=== PATIENT | female | born 1990 | race African-American/Black ===

== ENCOUNTER 2017-08-27 12:39 | Emergency (ER) | payer OTHER ==
[~2017-08-27] VITALS: Ht 167.6 cm; Wt 54.7 kg
[~2017-08-27 12:39] MED LIST: IBUP600 PO; PERI8.6T PO; PREN1CAP20 PO
[2017-08-27 12:44] VITALS: BP 140/86; PULSE 84; RESP 22; TEMP 97.8; O2SAT 100
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
== END 2017-08-27 14:40 | disposition home or self-care (01) ==
LOC: PHED 12:39
DX: S00.12XA Contusion of left eyelid and periocular area, initial encounter (principal); S40.011A Contusion of right shoulder, initial encounter; Y04.8XXA Assault by other bodily force, initial encounter; Y92.009 Unspecified place in unspecified non-institutional (private) residence as the place of occurrence of the external cause
CPT/HCPCS: 70450; 71045; 72125; 73560; 99284

== ENCOUNTER 2017-09-03 12:53 | Inpatient (IN) | payer MEDICAID, OTHER ==
[~2017-09-03] VITALS: Ht 165.1 cm; Wt 55.5 kg
[2017-09-03 13:29] VITALS: BP 143/80; PULSE 118; RESP 23; TEMP 98.4; O2SAT 100
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
[2017-09-03 15:43] LABS: AUTOMATED NEUTROPHIL # 9.1 TH/MM3 (1.8-7.7); BASOPHIL % 0.3 % (0.0-2.0); EOSINOPHIL % 0.1 % (0.0-4.0); HEMATOCRIT 40.5 % (35.0-46.0); HEMOGLOBIN 13.7 GM/DL (11.6-15.3); LYMPH % 11.9 % (9.0-44.0); LYMPHOCYTE # 1.3 TH/MM3 (1.0-4.8); MEAN CELL VOLUME 91.7 FL (80.0-100.0); MEAN CORPUSCULAR HEMOGLOBIN 31.1 PG (27.0-34.0); MEAN CORPUSCULAR HGB CONC 33.9 % (32.0-36.0); MEAN PLATELET VOLUME 9.1 FL (7.0-11.0); MONO % 5.6 % (0.0-8.0); MONOCYTE # 0.6 TH/MM3 (0-0.9); NEUT % 82.1 % (16.0-70.0); PLATELET COUNT 264 TH/MM3 (150-450); RED BLOOD COUNT 4.42 MIL/MM3 (4.00-5.30); RED CELL DISTRIBUTION WIDTH 12.7 % (11.6-17.2); WHITE BLOOD COUNT 11.1 TH/MM3 (4.0-11.0)
[2017-09-03 16:04] LABS: ALBUMIN 4.4 GM/DL (3.4-5.0); ALKALINE PHOSPHATASE 74 U/L (45-117); ALT (GPT) 17 U/L (10-53); AST (GOT) 12 U/L (15-37); BLOOD UREA NITROGEN 8 MG/DL (7-18); CHLORIDE 108 MEQ/L (98-107); CREATININE 0.77 MG/DL (0.50-1.00); GLOMERULAR FILTRATION RATE 111 ML/MIN (>89); GLUCOSE,RANDOM 103 MG/DL (74-106); SODIUM (NA) 143 MEQ/L (136-145); TOTAL BILIRUBIN ADULT 0.5 MG/DL (0.2-1.0)
[2017-09-03] MEDS ORDERED: LORazepam 1 MG TAB PO PRN ×2 (16:30→16:45)
[2017-09-03] MEDS ORDERED: MAGNESIUM HYDROXIDE SUSP 30 ML CUP PO PRN (16:30)
[2017-09-03] MEDS ORDERED: POTASSIUM CHLORIDE 10 MEQ CONTROLLED RELEASE TAB PO ONE (16:30)
[2017-09-03] MEDS ORDERED: LORazepam 2 MG/ML VIAL IM PRN (16:30)
[2017-09-03] MEDS ORDERED: ALUMINUM/MAGNESIUM/SIMETH 30 ML CUP PO PRN (16:30)
[2017-09-03] MEDS ORDERED: BENZTROPINE MESYLATE 1 MG TAB PO PRN (16:30)
[2017-09-03] MEDS ORDERED: BENZTROPINE MESYLATE 2 MG/2 ML VIAL IM PRN (16:30)
[2017-09-03] MEDS ORDERED: NICOTINE 21 MG/24 HR PATCH T-DERMAL PRN (16:30)
[2017-09-03] MEDS ORDERED: MELATONIN 5 MG TAB PO PRN (16:30)
[2017-09-03] MEDS ORDERED: FLUMAZENIL 0.5 MG/5 ML VIAL IV PUSH PRN (16:45)
[2017-09-03] MEDS ORDERED: LORazepam 2 MG/ML VIAL IV PUSH PRN ×4 (16:45)
[2017-09-03] MEDS ORDERED: POTASSIUM CHLORIDE 20 MEQ CONTROLLED RELEASE TAB PO ONE ×2 (16:45→18:00)
[2017-09-03] MEDS ORDERED: LORazepam 2 MG TAB PO PRN (16:45)
[2017-09-03] MEDS ORDERED: IBUPROFEN 600 MG TAB PO PRN (16:45)
[2017-09-03] MEDS ORDERED: ALBUTEROL SULFATE 90 MCG/ACT HFA 8 GM INHALER INH PRN (16:45)
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
[2017-09-03 19:04] LABS: FREE T4 1.24 NG/DL (0.76-1.46)
[2017-09-03] MEDS: QUEtiapine FUMARATE 25 MG TAB PO SCH (21:00)
[2017-09-03] MEDS: BACITRACIN TOP OINT 15 GM TUBE TOPICAL SCH (21:00)
[2017-09-04 06:21] VITALS: BP 118/96; PULSE 96; RESP 16; TEMP 97.7; O2SAT 100
[2017-09-04] MEDS: BACITRACIN TOP OINT 15 GM TUBE TOPICAL SCH ×2 (09:00→20:52)
[2017-09-04] MEDS: FOLIC ACID 1 MG TAB PO SCH (12:09)
[2017-09-04] MEDS: QUEtiapine FUMARATE 25 MG TAB PO SCH ×2 (12:10→20:48)
[2017-09-04] MEDS: MULTIVITAMINS/MINERALS THERAPEUTIC TAB PO SCH (12:10)
[2017-09-04] MEDS: THIAMINE HCL 100 MG TAB PO SCH (12:10)
[2017-09-04 14:24] VITALS: BP 130/62; PULSE 80; RESP 16; TEMP 98.4; O2SAT 97
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
[2017-09-04 16:00] VITALS: BP 139/86; PULSE 74; RESP 16; TEMP 97.7; O2SAT 100
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
[2017-09-04] MEDS: DEXT 5%-NACL 0.9% 1000 ML INJ 1,000 ML IV SCH (17:11)
[2017-09-04] MEDS: THIAMINE INJ 100 MG in SODIUM CHLORIDE 0.9% INJ 100 ML IV SCH (17:58)
--- NOTE | 2017-09-04 18:28 | EKG ---
Date Performed: 09/03/2017 Time Performed: 21:37:40 PTAGE: 26 years EKG: Sinus rhythm NORMAL ECG Since PREVIOUS TRACING , no significant change noted PREVIOUS TRACIN04/06/2012 09.02 DOCTOR: Talat Ames Interpretating Date/Time 09/04/2017 18:27:23
[2017-09-04] MEDS ORDERED: diphenhydrAMINE HCL 50 MG/ML VIAL IM SCH (18:45)
[2017-09-04] MEDS: MULTIVITAMIN INJ 10 ML, FOLIC ACID INJ 1 MG in SODIUM CHLORID 0.9% 500 ML INJ 500 ML IV SCH (18:48)
[2017-09-04] MEDS: HALOPERIDOL LACTATE 5 MG/ML AMP IM PRN (20:48)
[2017-09-04 21:00] VITALS: BP 84/55; PULSE 73; RESP 16; TEMP 98.7; O2SAT 97
[2017-09-05 00:54] VITALS: BP 132/76; PULSE 82; RESP 16; TEMP 96.4; O2SAT 100
[2017-09-05] MEDS: DEXT 5%-NACL 0.9% 1000 ML INJ 1,000 ML IV SCH ×3 (03:00→23:00)
[2017-09-05 06:31] VITALS: BP 131/65; PULSE 70; RESP 16; O2SAT 100
[2017-09-05] MEDS: THIAMINE HCL 100 MG TAB PO SCH (08:19)
[2017-09-05] MEDS: FOLIC ACID 1 MG TAB PO SCH (08:19)
[2017-09-05] MEDS: QUEtiapine FUMARATE 25 MG TAB PO SCH ×2 (08:19→21:13)
[2017-09-05] MEDS: BACITRACIN TOP OINT 15 GM TUBE TOPICAL SCH ×2 (08:47→21:00)
[2017-09-05] MEDS: MULTIVITAMINS/MINERALS THERAPEUTIC TAB PO SCH (09:00)
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
[2017-09-05 10:36] LABS: AUTOMATED NEUTROPHIL # 3.8 TH/MM3 (1.8-7.7); BASOPHIL % 0.4 % (0.0-2.0); EOSINOPHIL # 0.1 TH/MM3 (0-0.4); EOSINOPHIL % 2.6 % (0.0-4.0); HEMATOCRIT 37.7 % (35.0-46.0); HEMOGLOBIN 12.7 GM/DL (11.6-15.3); LYMPHOCYTE # 1.3 TH/MM3 (1.0-4.8); MEAN CORPUSCULAR HEMOGLOBIN 31.4 PG (27.0-34.0); MEAN CORPUSCULAR HGB CONC 33.7 % (32.0-36.0); MEAN PLATELET VOLUME 9.2 FL (7.0-11.0); MONOCYTE # 0.5 TH/MM3 (0-0.9); PLATELET COUNT 196 TH/MM3 (150-450); RED BLOOD COUNT 4.06 MIL/MM3 (4.00-5.30); RED CELL DISTRIBUTION WIDTH 12.7 % (11.6-17.2); WHITE BLOOD COUNT 5.7 TH/MM3 (4.0-11.0)
[2017-09-05 11:15] LABS: BICARBONATE 23.8 MEQ/L (21.0-32.0); BLOOD UREA NITROGEN 8 MG/DL (7-18); CHLORIDE 109 MEQ/L (98-107); CHOLESTEROL 97 MG/DL (120-200); CHOLESTEROL/ HDL RATIO 1.75 RATIO; CREATININE 0.59 MG/DL (0.50-1.00); GLOMERULAR FILTRATION RATE 150 ML/MIN (>89); GLUCOSE,RANDOM 80 MG/DL (74-106); HDL CHOLESTEROL 55.4 MG/DL (40.0-60.0); LDL CHOLESTEROL 34 MG/DL (0-99); MAGNESIUM 1.9 MG/DL (1.5-2.5); SODIUM (NA) 143 MEQ/L (136-145); TRIGLYCERIDES 38 MG/DL (42-150)
--- NOTE | 2017-09-05 12:26 | RADRPT ---
EXAM DATE/TIME: 09/05/2017 11:10 [facility] COMPARISON: CT BRAIN W/O CONTRAST, August 27, 2017, 13:34. INDICATIONS : Altered mental status. RADIATION DOSE: 49.42 CTDIvol (mGy) MEDICAL HISTORY : None SURGICAL HISTORY : None. ENCOUNTER: Initial ACUITY: 1 day PAIN SCALE: 0/10 LOCATION: cranial TECHNIQUE: Multiple contiguous axial images were obtained of the head. Using automated exposure control and adj ustment of the mA and/or kV according to patient size, radiation dose was kept as low as reasonably a chievable to obtain optimal diagnostic quality images. DICOM format image data is available electro nically for review and comparison. FINDINGS: CEREBRUM: The ventricles are normal for age. No evidence of midline shift, mass lesion, hemorrhage or acute in farction. No extra-axial fluid collections are seen. POSTERIOR FOSSA: The cerebellum and brainstem are intact. The 4th ventricle is midline. The cerebellopontine angle i s unremarkable. EXTRACRANIAL: The visualized portion of the orbits is intact. SKULL: The calvaria is intact. No evidence of skull fracture. CONCLUSION: Normal examination. Faith Lima MD on September 05, 2017 at 12:23 Board Certified Radiologist. This report was verified electronically.
[2017-09-05 12:52] LABS: HEMOGLOBIN A1C 4.6 % (4.3-6.0)
--- NOTE | 2017-09-05 13:27 | EKG ---
Date Performed: 09/04/2017 Time Performed: 17:07:07 PTAGE: 26 years EKG: Sinus rhythm WITH SINUS ARRHYTHMIA NORMAL ECG Since PREVIOUS TRACING , no significant change noted PREVIOUS TRACIN09/03/2017 21.37 DOCTOR: Talat Ames Interpretating Date/Time 09/05/2017 13:26:21
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
[2017-09-05] MEDS ORDERED: GADODIAMIDE PF 287 MG/ML 10 ML VIAL (for RAD MRI) IVCONTRAST ONE (15:58)
--- NOTE | 2017-09-05 16:27 | RADRPT ---
EXAM DATE/TIME: 09/05/2017 15:36 [facility] COMPARISON: No previous studies available for comparison. INDICATIONS : Altered mental status. Psychosis. CONTRAST: 10 cc Omniscan (gadodiamide) IV MEDICAL HISTORY : None. SURGICAL HISTORY : section. ENCOUNTER: Initial ACUITY: 2 day PAIN SCORE: 0/10 LOCATION: cranial TECHNIQUE: Multiplanar, multisequence MRI of the brain was performed both prior to and following the administrat ion of paramagnetic contrast. FINDINGS: CEREBRUM: The ventricles are normal for age. No evidence of midline shift, mass lesion, hemorrhage or acute in farction. No extraaxial fluid collections are seen. The pituitary gland and suprasellar cistern are normal in configuration. WHITE MATTER: No significant signal abnormalities are seen in the white matter. POSTERIOR FOSSA: The cerebellum and brainstem are intact. The 4th ventricle is midline. The cerebellopontine angle is unremarkable. The cerebellar tonsils are normal in position. DIFFUSION IMAGING: No focal areas of restricted diffusion are seen. No evidence of acute infarction. EXTRACRANIAL: The visualized portions of the orbits and paranasal sinuses are unremarkable. POST-CONTRAST: No abnormal areas of parenchymal or dural enhancement. No evidence of blood-brain barrier breakdown. CONCLUSION: Normal examination for a patient of this age. Mynor Valladares MD on September 05, 2017 at 16:19 Board Certified Radiologist. This report was verified electronically.
--- NOTE | 2017-09-05 16:30 | RADRPT ---
EXAM DATE/TIME: 09/05/2017 15:36 [facility] COMPARISON: No previous studies available for comparison. INDICATIONS : Altered mental status. Psychosis. MEDICAL HISTORY : None. SURGICAL HISTORY : section. ENCOUNTER: Initial ACUITY: 2 day PAIN SCORE: 0/10 LOCATION: cranial Please note a normal MRA of the brain does not entirely exclude the possibility of a small aneurysm, nor the possibility of distal intracranial vessel disease. TECHNIQUE: 3D time of flight MRA was performed. Source images, multiplanar STS MIP, and 3D volume MIP reconstru ctions were reviewed. FINDINGS: There is excellent visualization of the major intracranial arteries out to the second-order branch ve ssels. There is no evidence for aneurysm, vessel truncation or stenosis, and no evidence for vascula r malformation. CONCLUSION: 1. Negative examination. Pedro Kinsey MD on September 05, 2017 at 16:27 Board Certified Radiologist. This report was verified electronically.
[2017-09-05] MEDS: THIAMINE INJ 100 MG in SODIUM CHLORIDE 0.9% INJ 100 ML IV SCH (16:32)
[2017-09-05] MEDS: MULTIVITAMIN INJ 10 ML, FOLIC ACID INJ 1 MG in SODIUM CHLORID 0.9% 500 ML INJ 500 ML IV SCH (17:00)
[2017-09-05 18:00] VITALS: BP 142/73; PULSE 78; RESP 18; TEMP 98.2; O2SAT 98
[2017-09-05] MEDS ORDERED: FOSPHENYTOIN INJ 1,000 MGPE in SODIUM CHLORIDE 0.9% INJ 50 ML IV ONE (21:00)
[2017-09-05 21:52] VITALS: PULSE 104; O2SAT 99
[2017-09-05 21:56] VITALS: BP 120/70; PULSE 88
[2017-09-06] MEDS: HALOPERIDOL LACTATE 5 MG/ML AMP IM PRN (02:00)
[2017-09-06 02:27] VITALS: BP 104/72; PULSE 68; RESP 18; TEMP 97.8; O2SAT 99
[2017-09-06] MEDS: DEXT 5%-NACL 0.9% 1000 ML INJ 1,000 ML IV SCH (02:30)
[2017-09-06 06:22] VITALS: BP 111/77; PULSE 68; RESP 18; TEMP 98; O2SAT 99
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
--- NOTE | 2017-09-06 08:48 | HHI.PYPN ---
Subjective Chief Complaint: psychosis Remarks Patient seen and examined with nurse. Chart reviewed. Case discussed with nursing staff. Patient had 2 spells over weekend possibly concerning for seizure. Hospitalist and neurology were consulted. Patient remains on 1:1 for safety due to behaviors at the beginning of the weekend, which have not continued. Nurse reports patient chewed her medications this morning and spit much of them out. On my examination today, patient is in bed with sitter at the bedside. Affect is blunted and patient keeps her eyes closed for much of the interview. She appears quite withdrawn and regressed compared to her presentation before the weekend. She reports experiencing ongoing CAH to hurt self and others (no specific victim), although she denies any actual SI or HI. She is taking poor PO, and when I ask about this she reports that her throat hurts. No reported side effects from medications. Except for above, no acute physical complaints. Spoke with patient's mother, Ms. Deutsch over the phone. We discuss patient's progress and review the lab and study workup so far. I have suggested titrating Seroquel to target psychotic symptoms, but mother does not wish to do so at this time. We discuss disposition planning, and mother would like patient to remain on the inpatient unit at least overnight until EEG can be read , but I get the sense that thereafter she would like the patient to pursue counseling on an outpatient basis. I have counseled mother that patient would likely struggle in a less restrictive setting as a consequence of her psychosis , particularly if we do not adjust medications to address this. She thanks me for my involvement in patient's case. I spent ~15min in telephone consultation with mother. Review of Systems ROS Limitations: Psychotic, Poor Historian Except as stated in HPI: all other systems reviewed are Neg Mental Status Examination Appearance: Disheveled Consciousness: Alert Orientation: x4 Motor Activity: Other (No hand tremor. No cogwheeling. No dystonia. No dyskinesia. No hypertonia UE or LE. No pathologic clonus. No other motor abnormalities noted. No ictal activity noted.) Speech: Slow Language: Adequate Fund of Knowledge: Inadequate Attention and Concentration: Inadequate Memory: Impaired Mood: Other (dysphoric) Affect: Blunt Thought Process & Associations: Intact Thought Content: Bizarre thinking, Delusional Hallucination Type: Auditory (CAH to hurt self/others) Delusion Type: Paranoid Suicidal Ideation: No Suicidal Plan: No Suicidal Intention: No Homicidal Ideation: No Homicidal Plan: No Homicidal Intention: No Insight: Poor Judgment: Poor Results Labs Test 09/05/17 09:17 09/05/17 13:46 09/05/17 14:15 White Blood Count 5.7 TH/MM3 Red Blood Count 4.06 MIL/MM3 Hemoglobin 12.7 GM/DL Hematocrit 37.7 % Mean Corpuscular Volume 93.0 FL Mean Corpuscular Hemoglobin 31.4 PG Mean Corpuscular Hemoglobin Concent 33.7 % Red Cell Distribution Width 12.7 % Platelet Count 196 TH/MM3 Mean Platelet Volume 9.2 FL Neutrophils (%) (Auto) 66.0 % Lymphocytes (%) (Auto) 23.0 % Monocytes (%) (Auto) 8.0 % Eosinophils (%) (Auto) 2.6 % Basophils (%) (Auto) 0.4 % Neutrophils # (Auto) 3.8 TH/MM3 Lymphocytes # (Auto) 1.3 TH/MM3 Monocytes # (Auto) 0.5 TH/MM3 Eosinophils # (Auto) 0.1 TH/MM3 Basophils # (Auto) 0.0 TH/MM3 CBC Comment DIFF FINAL Differential Comment Blood Urea Nitrogen 8 MG/DL Creatinine 0.59 MG/DL Random Glucose 80 MG/DL Calcium Level 8.0 MG/DL Magnesium Level 1.9 MG/DL Sodium Level 143 MEQ/L Potassium Level 3.2 MEQ/L Chloride Level 109 MEQ/L Carbon Dioxide Level 23.8 MEQ/L Anion Gap 10 MEQ/L Estimat Glomerular Filtration Rate 150 ML/MIN Hemoglobin A1c 4.6 % Triglycerides Level 38 MG/DL Cholesterol Level 97 MG/DL LDL Cholesterol 34 MG/DL HDL Cholesterol 55.4 MG/DL Cholesterol/HDL Ratio 1.75 RATIO HIV (1&2) Ab and P24 Ag, 4th Gener NONREACTIVE Ammonia 32 MCMOL/L C-Reactive Protein LESS THAN 0.29 MG/DL Erythrocyte Sedimentation Rate 3 mm/hr Labs reviewed. Last Impressions Brain MRI 09/05/17 1322 Signed Impressions: Service Date/Time: Tuesday, September 05, 2017 15:36 - CONCLUSION: Normal examination for a patient of this age. Mynor Valladares MD Head Magnetic Resonance Angiography 09/05/17 0000 Signed Impressions: Service Date/Time: Tuesday, September 05, 2017 15:36 - CONCLUSION: 1. Negative examination. Pdero Kinsey MD Head CT 09/05/17 0000 Signed Impressions: Service Date/Time: Tuesday, September 05, 2017 11:10 - CONCLUSION: Normal examination. Faith Lima MD Vitals/IOs Vital Signs Date Time Temp Pulse Resp B/P (MAP) Pulse Ox O2 Delivery O2 Flow Rate FiO2 09/06/17 06:22 98.0 68 18 111/77 (88) 99 Intake and Output 09/06/17 09/06/17 09/07/17 08:00 16:00 00:00 Intake Total 2017 ml Balance 2017 ml Assessment & Plan Problem List: (1) Unspecified psychosis ICD Codes: F29 - Unspecified psychosis not due to a substance or known physiological condition Status: Acute (2) Polysubstance abuse ICD Codes: F19.10 - Other psychoactive substance abuse, uncomplicated Status: Acute Assessment & Plan Differential diagnosis remains largely unchanged. Post- or inter-ictal psychosis is certainly a possibility if EEG suggests seizure tendency. I recommended titrating Seroquel today to target psychotic symptoms but HCS declines med change at this time. Continue 1:1 sitter for safety. Encourage fluids and consult dietitian given poor PO intake. Hospitalist and neurology input noted and appreciated. Follow-up outstanding laboratories and EEG. Continue to monitor on medical psychiatric unit. Continue other meds and care as ordered. Justification for Cont. Inpt. Impairment in reality construction. Impairment in self-care. High risk for decompensation in less restrictive environment. Discharge Planning Pending psychiatric stabilization Request HC Surrog/Guard Advoc?: Yes Misael Sutton MD Sep 06, 2017 08:48
[2017-09-06] MEDS: D5-NS + KCL 20 MEQ INJ 1,000 ML IV SCH ×2 (09:00→19:00)
[2017-09-06] MEDS: BACITRACIN TOP OINT 15 GM TUBE TOPICAL SCH ×2 (09:00→20:48)
[2017-09-06] MEDS: QUEtiapine FUMARATE 25 MG TAB PO SCH ×2 (10:03→20:48)
[2017-09-06] MEDS: FOLIC ACID 1 MG TAB PO SCH (10:03)
[2017-09-06] MEDS: MULTIVITAMINS/MINERALS THERAPEUTIC TAB PO SCH (10:03)
[2017-09-06] MEDS: THIAMINE HCL 100 MG TAB PO SCH (10:03)
[2017-09-06] MEDS: FOSPHENYTOIN SODIUM 100 MG PE/2 ML VIAL IV SCH ×2 (10:55→21:47)
[2017-09-06 13:19] LABS: BICARBONATE 25.1 MEQ/L (21.0-32.0); CALCIUM 8.2 MG/DL (8.5-10.1); CREATININE 0.48 MG/DL (0.50-1.00)
--- NOTE | 2017-09-06 14:15 | HHI.PR ---
Subjective Remarks Follow up possible seizure. Her mother is present and reports that the patient' s left eye has been red. The patient denies pain in the left eye. She is reporting blurred vision that is getting worse. Objective Vitals Vital Signs Date Time Temp Pulse Resp B/P (MAP) Pulse Ox O2 Delivery O2 Flow Rate FiO2 09/06/17 06:22 98.0 68 18 111/77 (88) 99 09/06/17 02:27 97.8 68 18 104/72 (83) 99 09/05/17 21:56 88 120/70 (87) 09/05/17 21:52 104 99 09/05/17 18:00 98.2 78 18 142/73 (96) 98 I/O 09/05/17 09/05/17 09/05/17 09/06/17 09/06/17 09/06/17 07:00 15:00 23:00 07:00 15:00 23:00 Intake Total 1128.2 ml 360 ml 2018 ml Balance 1128.2 ml 360 ml 2018 ml Intake Oral 0 ml 360 ml IV Total 1128.2 ml 2018 ml # Voids 1 1 1 Result Diagram: 09/05/17 0917 09/06/17 1208 Imaging Last Impressions Brain MRI 09/05/17 1322 Signed Impressions: Service Date/Time: Tuesday, September 05, 2017 15:36 - CONCLUSION: Normal examination for a patient of this age. Mynor Valladares MD Head Magnetic Resonance Angiography 09/05/17 0000 Signed Impressions: Service Date/Time: Tuesday, September 05, 2017 15:36 - CONCLUSION: 1. Negative examination. Pedro Kinsey MD Head CT 09/05/17 0000 Signed Impressions: Service Date/Time: Tuesday, September 05, 2017 11:10 - CONCLUSION: Normal examination. Faith Lima MD Objective Remarks General: No acute distress. HEENT: Left eye with subconjunctival hemorrhage. Heart: Regular rate and rhythm. No murmur. Lungs: Clear to auscultation bilaterally. No wheezes, rales, or rhonchi. Breathing is nonlabored. Abdomen: Soft, nontender, nondistended. Extremities: No lower extremity edema. Psych: Alert and oriented. Urinary Catheter: No Vascular Central Line Catheter: No A/P Assessment and Plan 1. Psychosis: Management per psychiatry. 2. Polysubstance abuse: Management per psychiatry. 3. Altered mental status: Likely secondary to benzodiazepines. 4. Hypokalemia: Supplement potassium. 5. ?seizure disorder: Appreciate neurology recommendations. EEG pending. Continue Fosphenytoin. 6. DVT prophylaxis: SCDs. 7. Blurred vision, subconjunctival hemorrhage: Uncertain etiology per patient's mother. Consult ophthalmology. Manuel Bueno MD Sep 06, 2017 14:15
[2017-09-06] MEDS: THIAMINE INJ 100 MG in SODIUM CHLORIDE 0.9% INJ 100 ML IV SCH (17:00)
[2017-09-06] MEDS: MULTIVITAMIN INJ 10 ML, FOLIC ACID INJ 1 MG in SODIUM CHLORID 0.9% 500 ML INJ 500 ML IV SCH (17:00)
[2017-09-06 18:07] VITALS: BP 117/72; PULSE 89; RESP 16; TEMP 97.7; O2SAT 100
--- NOTE | 2017-09-06 18:34 | MG ---
cc: Alfonso Guerra MD DATE OF STUDY: 09/06 REQUESTED BY: Dr. Dejesus INDICATION: An EEG was obtained on this 26 years old patient awake and drowsy with history of decreased responsiveness. DESCRIPTION: There is a mixture of alpha waves and some beta rhythms diffusely. The patient is awake and drowsy intermittently. When drowsy, there are some intermixed theta rhythms. The background is reactive. Photic stimulation showed some bilateral driving response. INTERPRETATION: Normal awake and asleep EEG. Alfonso Guerra MD [facility]/ , 05:09 PM , 05:54 PM
[2017-09-06 22:00] VITALS: BP 115/73; PULSE 77
[2017-09-07 05:17] VITALS: BP 126/65; PULSE 65; RESP 16; TEMP 97.5; O2SAT 100
[2017-09-07 08:29] LABS: BICARBONATE 27.5 MEQ/L (21.0-32.0); CALCIUM 8.1 MG/DL (8.5-10.1); CREATININE 0.55 MG/DL (0.50-1.00)
--- NOTE | 2017-09-07 08:41 | HHI.PR ---
Subjective Remarks Follow-up visit ? Seizure, worsening blurry vision, subconjunctival hemorrhage. Patient seen and examined today sitting in bed. States he is doing well. States she continues to have blurry vision but otherwise is able to see with her glasses on. Patient has a possible on every question but responds appropriately. Complains of constipation. denies pain and discomfort. Denies SOB/ dyspnea. Denies chest pain, palpitations, headaches, dizziness. Denies fevers, chills, n/v. Denies dysuria. Objective Vitals Vital Signs Date Time Temp Pulse Resp B/P (MAP) Pulse Ox O2 Delivery O2 Flow Rate FiO2 09/07/17 05:17 97.5 65 16 126/65 (85) 100 09/06/17 22:00 77 115/73 (87) 09/06/17 18:07 97.7 89 16 117/72 (87) 100 I/O 09/06/17 09/06/17 09/06/17 09/07/17 09/07/17 09/07/17 07:00 15:00 23:00 07:00 15:00 23:00 Intake Total 2018 ml 0 ml Balance 2018 ml 0 ml Intake Oral 0 ml IV Total 2018 ml # Voids 1 2 Result Diagram: 09/05/17 0917 09/07/17 0658 Imaging Last Impressions Brain MRI 09/05/17 1322 Signed Impressions: Service Date/Time: Tuesday, September 05, 2017 15:36 - CONCLUSION: Normal examination for a patient of this age. Mynor Valladares MD Head Magnetic Resonance Angiography 09/05/17 0000 Signed Impressions: Service Date/Time: Tuesday, September 05, 2017 15:36 - CONCLUSION: 1. Negative examination. Pedro Kinsey MD Head CT 09/05/17 0000 Signed Impressions: Service Date/Time: Tuesday, September 05, 2017 11:10 - CONCLUSION: Normal examination. Faith Lima MD Objective Remarks GENERAL: This is a well-nourished, well-developed patient, in no apparent distress. SKIN: Warm and dry. HEENT: Normocephalic. Pupils equal round and reactive. Bilateral subconjunctival hemorrhage left greater than the right with right lower eyelid swelling. nose without bleeding. Airway patent. NECK: Trachea midline. CARDIOVASCULAR: Regular rate and rhythm without murmurs, gallops, or rubs. RESPIRATORY: Clear to auscultation. Breath sounds equal bilaterally. No wheezes , rales, or rhonchi. GASTROINTESTINAL: Abdomen soft, non-tender, nondistended. Bowel Sounds hypoactive. MUSCULOSKELETAL: Extremities without clubbing, cyanosis, or edema. NEUROLOGICAL: Awake and alert. Oriented to place, person. No focal neuro deficit. Moves all extremities. Normal speech. A/P Problem List: (1) Polysubstance abuse ICD Code: F19.10 - Other psychoactive substance abuse, uncomplicated Status: Acute (2) Unspecified psychosis ICD Code: F29 - Unspecified psychosis not due to a substance or known physiological condition Status: Acute (3) Toxic encephalopathy ICD Code: G92 - Toxic encephalopathy Status: Acute Assessment and Plan Patient is a 26-year-old -[place] female who initially came into the hospital for psychiatric evaluation found lying on the sidewalk and very disoriented. She is admitted to inpatient medical psychiatry unit for further evaluation. Consulted for assistance in medical management. Psychosis Polysubstance abuse Altered mental status -Likely secondary to benzodiazepines. -Managed by psychiatry team Hypokalemia: Supplement potassium. -Monitor potassium levels ?seizure disorder: -MRI, MRA are within normal -Appreciate neurology recommendations. -EEG showed normal awake and asleep EEG. -Fosphenytoin may be discontinued since EEG is negative. Will wait for neurology recommendation Blurred vision, subconjunctival hemorrhage: -Uncertain etiology. Patient states blurry vision has improved with use of glasses. Pupils are equal and reactive, cranial nerves intact. -Consult ophthalmology DVT prophylaxis: Orly Melton Sep 07, 2017 08:41
--- NOTE | 2017-09-07 08:42 | HHI.PYPN ---
Subjective Chief Complaint: psychosis Remarks Patient seen and examined with nurse. Chart reviewed. Case discussed with nursing staff. Case discussed in treatment team. On my exam today, patient displays odd affect, smiling inappropriately at times although mood remains depressed. She denies AVH today. She does endorse ongoing suicidal ideation with plan to cut her neck, and she agrees it is prudent to keep her with the 1: 1 for now. She remains hypoverbal, withdrawn and anhedonic. She refused meals yesterday but does take a small quantity of breakfast this morning and agrees that the meal meets with her dietary requirements. She denies side effects from medications. No acute physical complaints. Extensive discussion with patient regarding signing in to the hospital voluntarily. We discuss this potential change in her legal status and also discuss the right of release. I have the patient "teach-back" to me the details of our conversation to ensure she has understood. She is presently capacitated to sign voluntary and consent for medications. We review the R/B/A of medications, and patient is in agreement with the plan as outlined below. Patient is agreeable to titration of her Seroquel. Review of Systems Except as stated in HPI: all other systems reviewed are Neg Mental Status Examination Appearance: Disheveled Consciousness: Alert Orientation: x4 Motor Activity: Other (No motor abnormalities noted. No ictal activity noted. No signs of withdrawal noted.) Speech: Slow Language: Adequate Fund of Knowledge: Inadequate Attention and Concentration: Inadequate Memory: Impaired Mood: Other (Depressed) Affect: Other (inappropriate) Thought Process & Associations: Intact Thought Content: Appropriate Hallucination Type: None Delusion Type: None Suicidal Ideation: Yes Suicidal Plan: Yes Suicidal Intention: No Homicidal Ideation: No Homicidal Plan: No Homicidal Intention: No Insight: Poor Judgment: Poor Mental Status Exam Remarks Subconjunctival hemorrhage noted Results Labs Test 09/06/17 12:08 09/07/17 06:58 Blood Urea Nitrogen 2 MG/DL 2 MG/DL Creatinine 0.48 MG/DL 0.55 MG/DL Random Glucose 95 MG/DL 94 MG/DL Calcium Level 8.2 MG/DL 8.1 MG/DL Sodium Level 141 MEQ/L 143 MEQ/L Potassium Level 3.3 MEQ/L 3.4 MEQ/L Chloride Level 108 MEQ/L 108 MEQ/L Carbon Dioxide Level 25.1 MEQ/L 27.5 MEQ/L Anion Gap 8 MEQ/L 8 MEQ/L Estimat Glomerular Filtration Rate 191 ML/MIN 163 ML/MIN Labs reviewed. Patient remains hypokalemic, repletion ordered. Renal function remains intact. EEG negative for seizure. Vitals/IOs Vital Signs Date Time Temp Pulse Resp B/P (MAP) Pulse Ox O2 Delivery O2 Flow Rate FiO2 09/07/17 05:17 97.5 65 16 126/65 (85) 100 Assessment & Plan Problem List: (1) Unspecified psychosis ICD Codes: F29 - Unspecified psychosis not due to a substance or known physiological condition Status: Acute (2) Polysubstance abuse ICD Codes: F19.10 - Other psychoactive substance abuse, uncomplicated Status: Acute Assessment & Plan Titrate Seroquel to 75mg BID with plans for daily titration of this medication to effect and as tolerated. Haldol IM backup should patient refuse PO meds or spit out meds, and I did discuss use of this agent with patient, and she is in agreement with its use if needed. Hospitalist input noted and appreciated. Awaiting neuro input re: AED now that EEG negative for seizure. Ophthalmology has been consulted by the hospitalist. Continue to monitor on the medical psychiatric unit. Continue 1:1 for safety, and I have instructed RN to ensure that all sharp items (including utensils) are secured and accounted for. Continue other care as ordered. Justification for Cont. Inpt. Med changes. Impairment in safety. High risk for decompensation in less restrictive environment. Discharge Planning Pending psychiatric stabilization Request HC Surrog/Guard Advoc?: Yes Misael Sutton MD Sep 07, 2017 08:42
[2017-09-07] MEDS ORDERED: HALOPERIDOL LACTATE 5 MG/ML AMP IM PRN (08:45)
[2017-09-07] MEDS: FOSPHENYTOIN SODIUM 100 MG PE/2 ML VIAL IV SCH ×2 (09:00→22:43)
[2017-09-07] MEDS: QUEtiapine FUMARATE 25 MG TAB PO SCH ×2 (09:00→21:00)
[2017-09-07] MEDS: BACITRACIN TOP OINT 15 GM TUBE TOPICAL SCH ×2 (09:00→21:00)
[2017-09-07] MEDS ORDERED: POTASSIUM CHLORIDE 10 MEQ CONTROLLED RELEASE TAB PO ONE (09:30)
[2017-09-07 10:00] VITALS: BP 107/58; PULSE 70; RESP 17; TEMP 98.1; O2SAT 97
[2017-09-07] MEDS: D5-NS + KCL 20 MEQ INJ 1,000 ML IV SCH ×2 (13:15→15:00)
[2017-09-07 14:00] VITALS: BP 121/77; PULSE 91; RESP 18; TEMP 98.1; O2SAT 98
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
[2017-09-07] MEDS ORDERED: MENTHOL LOZENGE BUCCAL PRN (16:30)
[2017-09-07] MEDS: MULTIVITAMIN INJ 10 ML, FOLIC ACID INJ 1 MG in SODIUM CHLORID 0.9% 500 ML INJ 500 ML IV SCH (17:33)
[2017-09-07 18:11] VITALS: BP 158/74; PULSE 88; RESP 16; TEMP 98.4; O2SAT 100
[2017-09-07 22:00] VITALS: BP 120/75; PULSE 94; RESP 17; TEMP 98.2; O2SAT 100
[2017-09-08] MEDS: D5-NS + KCL 20 MEQ INJ 1,000 ML IV SCH ×3 (01:00→21:00)
[2017-09-08 02:01] VITALS: BP 132/68; PULSE 84; TEMP 98.2; O2SAT 100
[2017-09-08 06:07] VITALS: BP 131/83; PULSE 86; TEMP 97.9; O2SAT 100
--- NOTE | 2017-09-08 08:08 | HHI.PYPN ---
Subjective Chief Complaint: psychosis Remarks Patient seen and examined with nurse. Chart reviewed. Case discussed with nursing staff. On my exam today, patient is much more interactive and communicative. She exhibits prominent cluster B personality traits. She says that she feels much better and expects to be discharged home today. She remains on a 1:1 for safety and was as recently as yesterday articulating SI with plan. She denies SI or HI today. When I point out her recent SI, she notes petulantly "well, I'm not anymore." No psychotic symptoms. Denies side effects from medication but declines med change today and does not wish to take Haldol IM anymore. No physical complaints. Review of Systems Except as stated in HPI: all other systems reviewed are Neg Mental Status Examination Appearance: Appropriate Consciousness: Alert Orientation: x4 Motor Activity: Other (No motor abnormalities noted) Speech: Unremarkable Language: Adequate Fund of Knowledge: Adequate Attention and Concentration: Adequate Memory: Unremarkable Mood: Oppositional Affect: Appropriate (full and reactive) Thought Process & Associations: Intact Thought Content: Appropriate Hallucination Type: None Delusion Type: None Suicidal Ideation: No Suicidal Plan: No Suicidal Intention: No Homicidal Ideation: No Homicidal Plan: No Homicidal Intention: No Insight: Poor Judgment: Poor Results Labs Labs reviewed. Extended tox pending. Vitals/IOs Vital Signs Date Time Temp Pulse Resp B/P (MAP) Pulse Ox O2 Delivery O2 Flow Rate FiO2 09/08/17 06:07 97.9 86 131/83 (99) 100 09/07/17 22:00 17 Intake and Output 09/08/17 09/08/17 09/09/17 08:00 16:00 00:00 Intake Total 1200 ml Balance 1200 ml Assessment & Plan Problem List: (1) Unspecified psychosis ICD Codes: F29 - Unspecified psychosis not due to a substance or known physiological condition Status: Acute (2) Polysubstance abuse ICD Codes: F19.10 - Other psychoactive substance abuse, uncomplicated Status: Acute Assessment & Plan Based on presentation today, it seems possible that this whole presentation was the result of cluster B personality style + adjustment reaction. I will d/c 1: 1 and continue to observe on the unit. Continue Seroquel as ordered; patient declines med change. She withdraws consent for Haldol IM, and I have d/c'd this. Patient is requesting discharge today, but given her behavior up until this morning, including SI with plan yesterday, this seems premature. I have reminded patient of her right to complete right of release. Ophthalmology input noted and appreciated. Continue to monitor on inpatient unit. Continue other medications and care as ordered. Justification for Cont. Inpt. Monitoring for impairment in safety. Discharge Planning Pending outcome of observation. Case discussed with counselor. Request HC Surrog/Guard Advoc?: Yes Misael Sutton MD Sep 08, 2017 08:08
[2017-09-08] MEDS: QUEtiapine FUMARATE 25 MG TAB PO SCH ×2 (09:00→21:00)
[2017-09-08] MEDS ORDERED: THIAMINE HCL 100 MG TAB PO SCH (09:00)
[2017-09-08] MEDS: BACITRACIN TOP OINT 15 GM TUBE TOPICAL SCH ×2 (09:00→21:52)
--- NOTE | 2017-09-08 13:12 | PD.TTN ---
Patient Problems 1. Discharge planning 2. Medication compliance 3. Knowledge deficit 4. Lack of coping skills Progress Toward Goals Provider Present: Dr. Tisha Sutton Provider Input: 09/07/2017; patient is being monitor with his medication, and should be ready for dc within the next couple days. Nurse(s) Present: RN Nurse(s) Input: 09/07/2017; patient is eating small amounts of her meals, and now drinking fluid without encouragement. Psychiatric Counselors Present: NIC Stein Psych Therapist Input: 09/07/2017; counselor has set up outpatient appointments with [facility]. Group Spec/RT/OT/PAGAN Present: Tj Medina OT Group Spec/RT/OT/PAGAN Input: 09/07/2017; patient has not participate with groups or activities Documentation Scribe: Rosa Cook Sep 08, 2017 13:12
[2017-09-08] MEDS: MULTIVITAMIN INJ 10 ML, FOLIC ACID INJ 1 MG in SODIUM CHLORID 0.9% 500 ML INJ 500 ML IV SCH (16:52)
[2017-09-08 18:00] VITALS: BP 116/69; PULSE 77; RESP 17; TEMP 98.2; O2SAT 99
[2017-09-08 22:00] VITALS: BP 117/70; PULSE 88; RESP 16; TEMP 97; O2SAT 100
--- NOTE | 2017-09-08 23:52 | HHI.PR ---
Subjective Remarks Patient seen this afternoon. Denies any chest pressure shortness of breath. Denies any abdominal pain. Objective Vital Signs Date Time Temp Pulse Resp B/P (MAP) Pulse Ox O2 Delivery O2 Flow Rate FiO2 09/08/17 18:00 98.2 77 17 116/69 (85) 99 09/08/17 06:07 97.9 86 131/83 (99) 100 09/08/17 02:01 98.2 84 132/68 (89) 100 I/O 09/08/17 09/08/17 09/08/17 09/09/17 09/09/17 09/09/17 07:00 15:00 23:00 07:00 15:00 23:00 Intake Total 720 ml 1680 ml 240 ml Balance 720 ml 1680 ml 240 ml Intake Oral 720 ml 1680 ml 240 ml # Voids 3 Result Diagram: 09/05/17 0917 09/07/17 0658 Procedures None Objective Remarks GENERAL: bed. Appears comfortable. SKIN: Warm and dry. HEAD: Normocephalic. EYES: No scleral icterus. left conjunctival hemorrhage. No exudate NECK: Supple, trachea midline. No JVD. CARDIOVASCULAR: Regular rate and rhythm without murmurs, gallops, or rubs. RESPIRATORY: Breath sounds equal bilaterally. No accessory muscle use. GASTROINTESTINAL: Abdomen soft, non-tender, nondistended. MUSCULOSKELETAL: No cyanosis, or edema. BACK: Nontender without obvious deformity. No CVA tenderness. A/P Assessment and Plan Patient is a 26-year-old -[place] female who initially came into the hospital for psychiatric evaluation found lying on the sidewalk and very disoriented. She is admitted to inpatient medical psychiatry unit for further evaluation. Consulted for assistance in medical management. //Psychosis //Polysubstance abuse //Altered mental status -Likely secondary to benzodiazepines. -Managed by psychiatry team Hypokalemia: Supplement potassium. -Monitor potassium levels ?seizure disorder: -MRI, MRA are within normal -Appreciate neurology recommendations. -EEG showed normal awake and asleep EEG. -Fosphenytoin may be discontinued since EEG is negative. Will wait for neurology recommendation //Constipation. Laxatives ordered Blurred vision, subconjunctival hemorrhage: -Uncertain etiology. Patient states blurry vision has improved with use of glasses. Pupils are equal and reactive, cranial nerves intact. -Consult ophthalmology DVT prophylaxis: SCDs. Chan Gagnon MD Sep 08, 2017 23:52
[2017-09-09] MEDS ORDERED: DOCUSATE SODIUM 50 MG/SENNA 8.6 MG TAB PO ONE
[2017-09-09] MEDS ORDERED: MAGNESIUM HYDROXIDE SUSP 30 ML CUP PO ONE
[2017-09-09 04:54] VITALS: BP 117/77; PULSE 80; RESP 16; TEMP 97.6; O2SAT 100
[2017-09-09] MEDS: D5-NS + KCL 20 MEQ INJ 1,000 ML IV SCH (06:04)
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
[2017-09-09] MEDS: BACITRACIN TOP OINT 15 GM TUBE TOPICAL SCH (09:00)
[2017-09-09] MEDS: QUEtiapine FUMARATE 25 MG TAB PO SCH (09:00)
[2017-09-09 09:49] LABS: BICARBONATE 28.4 MEQ/L (21.0-32.0); CALCIUM 9.2 MG/DL (8.5-10.1); CREATININE 0.71 MG/DL (0.50-1.00)
[2017-09-09 15:30] LABS: ALBUMIN 3.6 GM/DL (3.4-5.0); BICARBONATE 26.8 MEQ/L (21.0-32.0); CALCIUM 8.9 MG/DL (8.5-10.1); CREATININE 0.7 MG/DL (0.50-1.00); MAGNESIUM 1.8 MG/DL (1.5-2.5); PHOSPHORUS 3.2 MG/DL (2.5-4.9)
== END 2017-09-09 14:44 | disposition left against medical advice (07) | DRG 882 ==
LOC: NEDAMB 12:53 → NEDA 16:30 → H260 18:32 → H270 22:35 → H4EA 09-04 16:10
PROVIDERS: ADMIT Psychiatry & Neurology Psychiatry; ATTEND Psychiatry & Neurology Psychiatry
DX: F43.25 Adjustment disorder with mixed disturbance of emotions and conduct (principal); G92 Toxic encephalopathy; E87.6 Hypokalemia; F19.10 Other psychoactive substance abuse, uncomplicated; F60.89 Other specific personality disorders; H11.33 Conjunctival hemorrhage, bilateral; K59.00 Constipation, unspecified
CPT/HCPCS: 70450; 70544; 70553; 76937; 80048; 80053; 80061; 80069; 80307; 82140; 82607; 82948; 83036; 83735; 84132; 84439; 84443; 84703; 85025; 85652; 86140; 86592; 86703; 93005; 95819; 99285; A9579; G0481; J0515; J1200; J1630; J2060; J3411; J3480; J7040; J7042; Q2009

== ENCOUNTER 2017-09-25 17:53 | Inpatient (IN) | payer MEDICAID, OTHER ==
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
[2017-09-25 19:54] VITALS: BP 124/85; PULSE 66; RESP 16; TEMP 98.7; O2SAT 100
--- NOTE | 2017-09-25 20:02 | PD ---
Physical Exam Date Seen by Provider: Sep 25, 2017 Time Seen by Provider: 20:01 Narrative For full history and physical examination please see previous providers note. I assumed care of this patient change of shift. At that time patient was pending medical clearance for psychiatric evaluation. Labs are pending. Data Data Last Documented VS Vital Signs Date Time Temp Pulse Resp B/P (MAP) Pulse Ox O2 Delivery O2 Flow Rate FiO2 09/25/17 20:32 98.4 76 18 141/79 (99) 100 Room Air Orders Orders Complete Blood Count With Diff (09/25/17 18:05) Comprehensive Metabolic Panel (09/25/17 18:05) Thyroid Stimulating Hormone (09/25/17 18:05) Urinalysis - C+S If Indicated (09/25/17 18:05) Ed Urine Pregnancytest Poc (09/25/17 18:05) Psych Screen (09/25/17 18:05) Drug Screen, Random Urine (09/25/17 18:05) Alcohol (Ethanol) (09/25/17 18:05) Salicylates (Aspirin) (09/25/17 18:05) Tylenol (Acetaminophen) (09/25/17 18:05) Restraints Violent (09/25/17 21:24) Lorazepam Inj (Ativan Inj) (09/25/17 21:45) Restraints Violent (09/25/17 21:58) Potassium Chloride (Kcl) (09/25/17 22:30) Labs Laboratory Tests Test 09/25/17 20:43 09/25/17 20:52 White Blood Count 12.8 TH/MM3 Red Blood Count 4.23 MIL/MM3 Hemoglobin 13.0 GM/DL Hematocrit 39.0 % Mean Corpuscular Volume 92.4 FL Mean Corpuscular Hemoglobin 30.7 PG Mean Corpuscular Hemoglobin Concent 33.2 % Red Cell Distribution Width 13.0 % Platelet Count 255 TH/MM3 Mean Platelet Volume 9.3 FL Neutrophils (%) (Auto) 74.3 % Lymphocytes (%) (Auto) 16.5 % Monocytes (%) (Auto) 8.8 % Eosinophils (%) (Auto) 0.2 % Basophils (%) (Auto) 0.2 % Neutrophils # (Auto) 9.5 TH/MM3 Lymphocytes # (Auto) 2.1 TH/MM3 Monocytes # (Auto) 1.1 TH/MM3 Eosinophils # (Auto) 0.0 TH/MM3 Basophils # (Auto) 0.0 TH/MM3 CBC Comment DIFF FINAL Differential Comment Blood Urea Nitrogen 7 MG/DL Creatinine 0.85 MG/DL Random Glucose 99 MG/DL Total Protein 7.8 GM/DL Albumin 4.2 GM/DL Calcium Level 9.0 MG/DL Alkaline Phosphatase 69 U/L Aspartate Amino Transf (AST/SGOT) 17 U/L Alanine Aminotransferase (ALT/SGPT) 20 U/L Total Bilirubin 0.5 MG/DL Sodium Level 140 MEQ/L Potassium Level 3.2 MEQ/L Chloride Level 107 MEQ/L Carbon Dioxide Level 24.6 MEQ/L Anion Gap 8 MEQ/L Estimat Glomerular Filtration Rate 99 ML/MIN Thyroid Stimulating Hormone 3rd Gen 1.280 uIU/ML Salicylates Level LESS THAN 1.7 MG/DL Acetaminophen Level LESS THAN 2.0 MCG/ML Ethyl Alcohol Level LESS THAN 3 MG/DL Urine Color YELLOW Urine Turbidity CLEAR Urine pH 6.5 Urine Specific [place] 1.009 Urine Protein 30 mg/dL Urine Glucose (UA) NEG mg/dL Urine Ketones 10 mg/dL Urine Occult Blood LARGE Urine Nitrite NEG Urine Bilirubin NEG Urine Urobilinogen 2.0 MG/DL Urine Leukocyte Esterase NEG Urine RBC 50 /hpf Urine WBC 6 /hpf Urine Squamous Epithelial Cells 2 /hpf Urine Mucus FEW /lpf Microscopic Urinalysis Comment CULT NOT INDICATED Urine Opiates Screen NEG Urine Barbiturates Screen NEG Urine Amphetamines Screen NEG Urine Benzodiazepines Screen NEG Urine Cocaine Screen NEG Urine Cannabinoids Screen NEG MDM Medical Record Reviewed: Yes Supervised Visit with JUAN: No Interpretation(s) Laboratory Tests Test 09/25/17 20:43 09/25/17 20:52 White Blood Count 12.8 TH/MM3 Red Blood Count 4.23 MIL/MM3 Hemoglobin 13.0 GM/DL Hematocrit 39.0 % Mean Corpuscular Volume 92.4 FL Mean Corpuscular Hemoglobin 30.7 PG Mean Corpuscular Hemoglobin Concent 33.2 % Red Cell Distribution Width 13.0 % Platelet Count 255 TH/MM3 Mean Platelet Volume 9.3 FL Neutrophils (%) (Auto) 74.3 % Lymphocytes (%) (Auto) 16.5 % Monocytes (%) (Auto) 8.8 % Eosinophils (%) (Auto) 0.2 % Basophils (%) (Auto) 0.2 % Neutrophils # (Auto) 9.5 TH/MM3 Lymphocytes # (Auto) 2.1 TH/MM3 Monocytes # (Auto) 1.1 TH/MM3 Eosinophils # (Auto) 0.0 TH/MM3 Basophils # (Auto) 0.0 TH/MM3 CBC Comment DIFF FINAL Differential Comment Blood Urea Nitrogen 7 MG/DL Creatinine 0.85 MG/DL Random Glucose 99 MG/DL Total Protein 7.8 GM/DL Albumin 4.2 GM/DL Calcium Level 9.0 MG/DL Alkaline Phosphatase 69 U/L Aspartate Amino Transf (AST/SGOT) 17 U/L Alanine Aminotransferase (ALT/SGPT) 20 U/L Total Bilirubin 0.5 MG/DL Sodium Level 140 MEQ/L Potassium Level 3.2 MEQ/L Chloride Level 107 MEQ/L Carbon Dioxide Level 24.6 MEQ/L Anion Gap 8 MEQ/L Estimat Glomerular Filtration Rate 99 ML/MIN Thyroid Stimulating Hormone 3rd Gen 1.280 uIU/ML Salicylates Level LESS THAN 1.7 MG/DL Acetaminophen Level LESS THAN 2.0 MCG/ML Ethyl Alcohol Level LESS THAN 3 MG/DL Urine Color YELLOW Urine Turbidity CLEAR Urine pH 6.5 Urine Specific [place] 1.009 Urine Protein 30 mg/dL Urine Glucose (UA) NEG mg/dL Urine Ketones 10 mg/dL Urine Occult Blood LARGE Urine Nitrite NEG Urine Bilirubin NEG Urine Urobilinogen 2.0 MG/DL Urine Leukocyte Esterase NEG Urine RBC 50 /hpf Urine WBC 6 /hpf Urine Squamous Epithelial Cells 2 /hpf Urine Mucus FEW /lpf Microscopic Urinalysis Comment CULT NOT INDICATED Urine Opiates Screen NEG Urine Barbiturates Screen NEG Urine Amphetamines Screen NEG Urine Benzodiazepines Screen NEG Urine Cocaine Screen NEG Urine Cannabinoids Screen NEG Vital Signs Date Time Temp Pulse Resp B/P (MAP) Pulse Ox O2 Delivery O2 Flow Rate FiO2 09/25/17 19:54 98.7 66 16 124/85 (98) 100 Room Air Differential Diagnosis Mood disorder versus substance abuse versus psychosis versus metabolic abnormality versus other Narrative Course Patient is a 26-year-old female presenting to the emergency department for psychiatric evaluation under Nguyen act. Her vital signs are stable. Mental health screening discussed with the patient. Psychiatric screen ordered. Labs reviewed, no acute findings identified. Patient became combative and aggressive towards staff, she was given Ativan 1 mg IM 1 dose. Patient is medically cleared for psych eval. Diagnosis Primary Impression: Medical clearance for psychiatric admission Scripts No Active Prescriptions or Reported Meds Condition: Viky Velez Sep 25, 2017 20:02
[2017-09-25 20:32] VITALS: BP 141/79; PULSE 76; RESP 18; TEMP 98.4; O2SAT 100
[2017-09-25 21:23] LABS: AUTOMATED NEUTROPHIL # 9.5 TH/MM3 (1.8-7.7); BASOPHIL % 0.2 % (0.0-2.0); EOSINOPHIL % 0.2 % (0.0-4.0); LYMPH % 16.5 % (9.0-44.0); LYMPHOCYTE # 2.1 TH/MM3 (1.0-4.8); MEAN CELL VOLUME 92.4 FL (80.0-100.0); MEAN CORPUSCULAR HEMOGLOBIN 30.7 PG (27.0-34.0); MEAN CORPUSCULAR HGB CONC 33.2 % (32.0-36.0); MEAN PLATELET VOLUME 9.3 FL (7.0-11.0); MONO % 8.8 % (0.0-8.0); MONOCYTE # 1.1 TH/MM3 (0-0.9); NEUT % 74.3 % (16.0-70.0); PLATELET COUNT 255 TH/MM3 (150-450); RED BLOOD COUNT 4.23 MIL/MM3 (4.00-5.30); WHITE BLOOD COUNT 12.8 TH/MM3 (4.0-11.0)
[2017-09-25 21:36] LABS: BILIRUBIN, URINE NEG (NEG); BLOOD, URINE LARGE (NEG); GLUCOSE,URINE NEG (NEG); KETONE, URINE 10 mg/dL (NEG); MUCUS URINE FEW /lpf (OCC); NITRITE,URINE NEG (NEG); PH, URINE 6.5 (5.0-8.5); SQUAMOUS EPITHELIAL CELL URINE 2 /hpf (0-5); URINE COLOR YELLOW (YELLW/STRAW); URINE LEUKOCYTE ESTERASE NEG (NEG)
[2017-09-25] MEDS ORDERED: LORazepam 2 MG/ML VIAL IM ONE (21:45)
[2017-09-25 22:20] LABS: ALBUMIN 4.2 GM/DL (3.4-5.0); ALKALINE PHOSPHATASE 69 U/L (45-117); ALT (GPT) 20 U/L (10-53); AST (GOT) 17 U/L (15-37); BICARBONATE 24.6 MEQ/L (21.0-32.0); BLOOD UREA NITROGEN 7 MG/DL (7-18); CHLORIDE 107 MEQ/L (98-107); CREATININE 0.85 MG/DL (0.50-1.00); GLOMERULAR FILTRATION RATE 99 ML/MIN (>89); GLUCOSE,RANDOM 99 MG/DL (74-106); SODIUM (NA) 140 MEQ/L (136-145); TOTAL BILIRUBIN ADULT 0.5 MG/DL (0.2-1.0); TOTAL PROTEIN 7.8 GM/DL (6.4-8.2)
[2017-09-25 22:21] LABS: ACETAMINOPHEN LESS THAN 2.0 MCG/ML (10.0-30.0)
[2017-09-25] MEDS ORDERED: POTASSIUM CHLORIDE 20 MEQ CONTROLLED RELEASE TAB PO ONE (22:30)
[2017-09-25 22:57] VITALS: BP 156/83; PULSE 82; RESP 18; TEMP 98.7; O2SAT 100
[2017-09-26 06:55] VITALS: BP 130/89; PULSE 95; RESP 18; TEMP 98; O2SAT 100
[2017-09-26] MEDS ORDERED: LORazepam 1 MG TAB PO ONE (08:00)
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
[2017-09-26] MEDS ORDERED: ALUMINUM/MAGNESIUM/SIMETH 30 ML CUP PO PRN (13:00)
[2017-09-26] MEDS ORDERED: MAGNESIUM HYDROXIDE SUSP 30 ML CUP PO PRN (13:00)
[2017-09-26 14:10] VITALS: BP 115/81; PULSE 104; RESP 20
[2017-09-26] MEDS ORDERED: OLANZapine IM 10 MG VIAL IM ONE (15:00)
[2017-09-27] MEDS ORDERED: OLANZapine IM 10 MG VIAL IM STA (10:47)
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
[2017-09-27] MEDS: POTASSIUM CHLORIDE 20 MEQ CONTROLLED RELEASE TAB PO ONE ×2 (12:30→13:06)
[2017-09-27 17:31] LABS: BICARBONATE 27.1 MEQ/L (21.0-32.0); BLOOD UREA NITROGEN 12 MG/DL (7-18); CALCIUM 8.6 MG/DL (8.5-10.1); CHLORIDE 108 MEQ/L (98-107); CHOLESTEROL 119 MG/DL (120-200); CHOLESTEROL/ HDL RATIO 2.05 RATIO; CREATININE 0.76 MG/DL (0.50-1.00); GLOMERULAR FILTRATION RATE 112 ML/MIN (>89); GLUCOSE,RANDOM 67 MG/DL (74-106); LDL CHOLESTEROL 51 MG/DL (0-99); SODIUM (NA) 144 MEQ/L (136-145); TRIGLYCERIDES 48 MG/DL (42-150)
[2017-09-27 22:08] LABS: HEMOGLOBIN A1C 4.4 % (4.3-6.0)
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
== END 2017-09-28 11:25 | DRG 885 ==
LOC: NEDAMB 17:53 → NEDA 09-26 12:58 → H270 09-26 15:24
PROVIDERS: ADMIT Psychiatry & Neurology Psychiatry; ATTEND Psychiatry & Neurology Psychiatry
DX: F29 Unspecified psychosis not due to a substance or known physiological condition (principal); F60.89 Other specific personality disorders; F94.0 Selective mutism; F12.90 Cannabis use, unspecified, uncomplicated; F90.9 Attention-deficit hyperactivity disorder, unspecified type; J45.909 Unspecified asthma, uncomplicated; Z88.0 Allergy status to penicillin; Z88.5 Allergy status to narcotic agent; Z88.6 Allergy status to analgesic agent; Z91.410 Personal history of adult physical and sexual abuse
CPT/HCPCS: 80048; 80053; 80061; 80307; 81001; 83036; 84443; 84702; 85025; 96372; J2060

== ENCOUNTER 2017-12-05 10:33 | Emergency (ER) | payer MEDICAID, OTHER ==
[~2017-12-05] VITALS: Ht 165.1 cm; Wt 59.9 kg
[2017-12-05 10:40] VITALS: BP 145/60; PULSE 70; RESP 16; TEMP 98.1; O2SAT 99
--- NOTE | 2017-12-05 11:01 | PD ---
HPI Chief Complaint: Musculoskeletal Complaint Time Seen by Provider: 11:01 Travel History International Travel<30 days: No Contact w/Intl Traveler<30days: No Traveled to known affect area: No History of Present Illness HPI 27-year-old female came to the emergency room with history of neck pain and torticollis since this morning. Patient says she thinks she could have slept awkwardly because as soon as she woke up the pain was there. 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 She has history of lower back pain but has not had any neck problems so far. She looked uncomfortable. Vital signs otherwise stable. No history of fever or chills. No radiation of the pain. Pain is worse when she tries to move her head. No history of trauma. [facility] Past Medical History Narrative Medical List of her past medical, surgical, social and family history reviewed from the nursing note ADD: Yes (AGE 15) ADHD: Yes Asthma: Yes Bipolar Disorder: Yes Cancer: No Cardiovascular Problems: No Developmental Delay: No Diabetes: No Diminished Hearing: No Endocrine: No Gastrointestinal Disorders: No Genitourinary: No Headaches: No Immune Disorder: No Implanted Vascular Access Dvce: No Musculoskeletal: Yes (HISTORY OF LT SCAPULA INJURY scoliosis) Neurologic: Yes (NEURITIS L SHOULDER) Psychiatric: Yes ([facility]) Reproductive: No Respiratory: Yes (ASTHMA) Immunizations Current: Yes Seizures: No Influenza Vaccination: No ?: Not : 4 Para: 1 Miscarriage: 0 : 2 Past Surgical History Section: Yes (X1) Gynecologic Surgery: Yes (CSECTION) Other Surgery: Yes Social History Alcohol Use: No Tobacco Use: No Substance Use: No Allergies-Medications (Allergen,Severity, Reaction): Coded Allergies: acetaminophen (Unverified Allergy, Severe, SOB, 12/05/17) banana (Unverified Allergy, Severe, Swelling, 12/05/17) cyclobenzaprine (Unverified Allergy, Severe, SOB, 12/05/17) hydrocodone (Unverified Allergy, Severe, SOB, 12/05/17) metaxalone (Unverified Allergy, Severe, SOB, 12/05/17) tramadol (Verified Allergy, Unknown, 12/05/17) PER AUNT Uncoded Allergies: PCN (Allergy, Unknown, 09/03/17) PER AUNT Comments List of her allergies reviewed from the nursing note Reported Meds & Prescriptions Reported Meds & Active Scripts Active Ibuprofen 600 Mg Tab 600 Mg PO Q6H PRN Narrative Medication List of her home medications reviewed from the nursing note Review of Systems Except as stated in HPI: all other systems reviewed are Neg Musculoskeletal: Positive: Pain Physical Exam Narrative GENERAL: Awake, alert, moderate distress. SKIN: Focused skin assessment warm/dry. HEAD: Atraumatic. Normocephalic. EYES: Pupils equal and round. No scleral icterus. No injection or drainage. ENT: No nasal bleeding or discharge. Mucous membranes pink and moist. NECK: Trachea midline. No JVD. Torticollis with the head tilted to the left. Paraspinal muscle spasm CARDIOVASCULAR: Regular rate and rhythm. No murmur appreciated. RESPIRATORY: No accessory muscle use. Clear to auscultation. Breath sounds equal bilaterally. GASTROINTESTINAL: Abdomen soft, non-tender, nondistended. Hepatic and splenic margins not palpable. MUSCULOSKELETAL: No obvious deformities. No clubbing. No cyanosis. No edema. NEUROLOGICAL: Awake and alert. No obvious cranial nerve deficits. Motor grossly within normal limits. Normal speech. PSYCHIATRIC: Appropriate mood and affect; insight and judgment normal. Data Data Last Documented VS Vital Signs Date Time Temp Pulse Resp B/P (MAP) Pulse Ox O2 Delivery O2 Flow Rate FiO2 12/05/17 13:10 12/05/17 12:15 103 16 99 12/05/17 10:40 98.1 Orders Orders Morphine Inj (Morphine Inj) (12/05/17 11:15) Ketorolac Inj (Toradol Inj) (12/05/17 11:15) Orphenadrine Inj (Norflex Inj) (12/05/17 11:15) Spine, Cervical Compl([id number]) (12/05/17 ) Apply Cervical Collar (12/05/17 12:51) MDM Medical Decision Making Medical Screen Exam Complete: Yes Emergency Medical Condition: Yes Medical Record Reviewed: Yes Differential Diagnosis Cervical radiculopathy, torticollis Narrative Course 12:46 PM patient has been medicated for pain and muscle relaxation. X-ray of the cervical spine has been read as negative. If patient feels better I will discharge her home. Procedures EKG Prior to Arrival: No Diagnosis Primary Impression: Torticollis, acute Additional Impression: Cervical radicular pain Additional Instructions: Take the medication as per the prescription direction. Apply warm compresses alternating with cold compress. Do not lift anything heavy. Return to the ER if condition worsens any other new concerns. Otherwise follow-up with her primary care. If the pain is not satisfactorily gone then your primary care will have to order an outpatient MRI. Keep the soft collar on until seen by your primary care physician and reassessed. It is for your comfort only. Med/Other Pt SpecificInfo: Prescription(s) given Scripts Ibuprofen (Ibuprofen) 600 Mg Tab 600 MG PO Q6H Y for Pain/Inflammation, #40 TAB 0 Refills Prov: Thomas Matamoros MD 12/05/17 Disposition: 01 DISCHARGE HOME Condition: Stable Thomas Matamoros MD Dec 05, 2017 11:01
[2017-12-05] MEDS ORDERED: MORPHINE SULFATE 8 MG/ML INJ IM ONE (11:15)
[2017-12-05] MEDS ORDERED: KETOROLAC TROMETHAMINE 60 MG/2 ML (IM) VIAL IM ONE (11:15)
[2017-12-05] MEDS ORDERED: ORPHENADRINE INJ 60 MG/2 ML AMP IM ONE (11:15)
[2017-12-05 12:15] VITALS: BP 117/62; PULSE 103; RESP 16; O2SAT 99
--- NOTE | 2017-12-05 12:34 | RADRPT ---
EXAM DATE: 12/05/2017 12:21 PM EDT AGE/SEX: 27 years / Female INDICATIONS: Neck pain today, no known injury CLINICAL DATA: This is the patient's initial encounter. Patient reports that signs and symptoms have been present for 1 day and indicates a pain score of 9/10. MEDICAL/SURGICAL HISTORY: None. None. COMPARISON: No prior exams available for comparison. FINDINGS: The vertebral bodies are in normal alignment without evidence of compression deformity. On the obliqu e views, the neural foramina widely patent. The atlantoaxial articulation is intact. Bone density is normal for age. Soft tissues are grossly intact. On the frontal view, the patient's head is mildly canted toward the right. CONCLUSION: Negative examination. Electronically signed by: Dayne Patel MD 12/05/2017 12:33 PM EDT
[2017-12-05] MEDS ORDERED: IBUP-232 PO (12:51)
== END 2017-12-05 13:14 | disposition home or self-care (01) ==
LOC: PHEFT 10:33
DX: M43.6 Torticollis (principal); M54.12 Radiculopathy, cervical region; M54.5 Low back pain; J45.909 Unspecified asthma, uncomplicated
CPT/HCPCS: 72050; 96372; 99283; J1885; J2270; J2360